=== PATIENT | female | born 1980 | race Caucasian/White ===

== ENCOUNTER 2016-09-02 | Emergency (ER) | payer SELFPAY ==
[2016-09-02 04:23] LABS: APPEARANCE,URINE CLEAR; BILIRUBIN,URINE NEGATIVE (NEGATIVE); GLUCOSE, URINE NEGATIVE (NEGATIVE); KETONES,URINE NEGATIVE (NEGATIVE); LEUKOCYTE ESTERASE,URINE SMALL (NEGATIVE); NITRITE,URINE NEGATIVE (NEGATIVE); PROTEIN,URINE NEGATIVE (NEGATIVE); URINE SPECIFIC GRAVITY 1.012; UROBILINOGEN,URINE NEGATIVE mg/dL (<2.0)
[2016-09-02] MEDS ORDERED: FLUCONAZOLE 100 MG TABLET PO ONE (04:29)
[2016-09-02] MEDS ORDERED: ACETAMINOPHEN 325 MG TABLET PO ONE (04:37)
--- NOTE | 2016-09-02 04:37 | ER Document Report ---
ED General - General Chief Complaint: Laceration Stated Complaint: LEFT ARM LACERATION Notes: Patient is 35 year old female presents with complaint of a laceration. Patient says she was cutting plastic tab on the water container. She said the knife slipped and cut the palmar aspect of her left hand. She has a small, half a centimeter, superficial abrasion on the palmar aspect of her hand. There was initially the patient's only complaint. She then later complained that she has vaginal pain it's been there for several months. Her partner says "I can barely finger her without her screaming from pain". She denies any bleeding during these episodes. She says that she does have some irregular menstrual periods. She's not had a Pap smear in several years. She's not seen a doctor in several years. She also mentions that she has chronic back pain. Her chronic back pain is unchanged. She does have history of back surgery. She denies loss of bowel control. No urinary retention. She does admit to some foul-smelling urine. No weakness into her legs. No new injuries. No change in her chronic back pain. She also complains of some bug bites. Patient says that her cat has fleas and that the fleas are biting her. No recent fevers or infections. No vomiting. No diarrhea. No other complaints at this time. No abnormal vaginal discharge. TRAVEL OUTSIDE OF THE [place] IN LAST 30 DAYS: No - Related Data Allergies/Adverse Reactions: Penicillins Allergy (Verified 09/02/16 00:35) Sulfa (Sulfonamide Antibiotics) Allergy (Verified 09/02/16 00:35) Past Medical History - Social History Smoking Status: Unknown if Ever Smoked Smoking Education Provided: Yes Frequency of alcohol use: None Drug Abuse: None Family History: Reviewed & Not Pertinent Patient has suicidal ideation: No Patient has homicidal ideation: No Renal/ Medical History: Denies: Hx Peritoneal Dialysis Musculoskeltal Medical History: Reports Hx Arthritis Review of Systems - Review of Systems Notes: My Normal Review Basic REVIEW OF SYSTEMS: CONSTITUTIONAL : Denies fever, chills, or sweats. Denies recent illness. EENT: Denies eye, ear, throat, or mouth pain or symptoms. Denies nasal or sinus congestion. RESPIRATORY: Denies cough, cold, or chest congestion. Denies shortness of breath, difficulty breathing, or wheezing. GASTROINTESTINAL: Denies abdominal pain. Denies nausea, vomiting, or diarrhea. Denies constipation. Last BM: GENITOURINARY: Foul-smelling urine FEMALE GENITOURINARY: Vaginal pain. MUSCULOSKELETAL: Chronic low back pain SKIN: Denies rash or skin lesions. NEUROLOGICAL: Denies altered mental status or loss of consciousness. Denies headache. Denies weakness or paralysis or loss of use of either side. Denies problems with gait or speech. Denies sensory or motor loss. ALL OTHER SYSTEMS REVIEWED AND NEGATIVE. Physical Exam - Vital signs Vitals: Temp Pulse Resp BP Pulse Ox 98.4 F 78 16 116/75 100 09/02/16 05:24 09/02/16 05:24 09/02/16 05:24 09/02/16 05:24 09/02/16 05:24 - Notes Notes: General Appearance: Well nourished, alert, cooperative, no acute distress, mild obvious discomfort. Vitals: reviewed, See vital signs table. Head: no swelling or tenderness to the head Eyes: PERRL, EOMI, Conjuctiva clear Lungs: No wheezing, No rales, No rhonci, No accessory muscle use, good air exchange bilaterally. Heart: Normal rate, Regular rythm, No murmur, no rub Abdomen: Normal BS, soft, No rigidity, No abdominal tenderness, No guarding, no rebound, no abdominal masses, no organomegaly Pelvic exam: No gingival swelling. No signs of gingival abscess. Patient does have some inflammation and fell smell on pelvic exam. She does have some thick white discharge. Finds are consistent with a yeast infection. Back: Surgical scar midline of the back. Minimal tenderness over the lower back. Patient has increased pain with range of motion. Patient said this is chronic and unchanged comparison to her previous chronic back pain. Extremities: strength 5/5 in all extremities, good pulses in all extremities, no swelling or tenderness in the extremities, no edema. Skin: warm, dry, appropriate color, no rash. Very superficial small, half a centimeter laceration to the hyperthenar eminence of the left hand. Patient is able to move all her fingers without difficulty. Good strength with flexion and extension and opposition of the thumb Neuro: speech clear, oriented x 3, normal affect, responds appropriately to questions. Course - Vital Signs Vital signs: Temp Pulse Resp BP Pulse Ox 98.4 F 78 16 116/75 100 09/02/16 05:24 09/02/16 05:24 09/02/16 05:24 09/02/16 05:24 09/02/16 05:24 - Laboratory Laboratory results interpreted by me: 09/02/16 03:56 Ur Leukocyte Esterase SMALL H - Transfer of Care Notes: 09/02/16 06:42 Patient's pelvic exam was consistent with yeast infection. I did give her a dose of Diflucan. Patient does have multiple small bug bites which were consistent with flea bites. I encouraged her and her partner to get her cat treated to get rid of the fleas. Patient's back pain is consistent with her chronic back pain is unchanged. I encouraged follow-up with [facility] for further treatment and management of her chronic pain. She has no neurologic deficits on exam patient she is stood and walked around the room without any difficulty. No signs of spinal cord impingement. Patient encouraged return to ER shows fevers, worsening of her symptoms, or she feels unwell. Patient had just a small abrasion to the left hand which was cleaned and then I placed Dermabond over the area. Patient agrees with plan and will be discharged home. Procedures - Laceration/Wound Repair left hand Wound length (cm): 0.5 Wound's Depth, Shape: Superficial Laceration pre-procedure: Chloraprep applied Wound Repaired With: Dermabond Post-procedure NV exam normal: Yes Complications: No Discharge - Discharge Clinical Impression: Vaginal pain, Laceration Back pain Qualifiers: Back pain location: low back pain Chronicity: chronic Back pain laterality: bilateral Sciatica presence: without sciatica Qualified Code(s): M54.5 - Low back pain Condition: Good Disposition: HOME, SELF-CARE Additional Instructions: Please follow-up with the automobile seat cover installer, Dr. Lawler, for reevaluation in regards to your vaginal pain. You should have Pap smears performed being that you're overdue for this. Please return to ER immediately if you have fevers, redness or swelling to her hand, leg weakness or numbness, worsening back pain, or feel unwell. Please follow-up with the current [facility] for further treatment of your low back pain. Referrals: CAMMY LAWLER MD [ACTIVE STAFF] - Follow up in 3-5 days
[2016-09-02 05:26] VITALS: BP 116/75
[2016-09-02 05:28] LABS: CHLAM PCR NOT DETECTED (NOT DETECT)
== END 2016-09-02 05:24 | disposition home or self-care (01) ==
LOC: ER
DX: S61.412A Laceration without foreign body of left hand, initial encounter (principal); W26.0XXA Contact with knife, initial encounter; Y93.89 Activity, other specified; T14.8 Other injury of unspecified body region; W57.XXXA Bitten or stung by nonvenomous insect and other nonvenomous arthropods, initial encounter; R10.2 Pelvic and perineal pain; N92.6 Irregular menstruation, unspecified; M54.5 Low back pain; G89.29 Other chronic pain; R39.89 Other symptoms and signs involving the genitourinary system; N89.8 Other specified noninflammatory disorders of vagina; Z98.890 Other specified postprocedural states; Z88.0 Allergy status to penicillin; Z88.2 Allergy status to sulfonamides
CPT/HCPCS: 81001; 87210; 87491; 87591; 99283

== ENCOUNTER 2016-09-16 20:53 | Emergency (ER) | payer SELFPAY ==
[2016-09-16 22:36] LABS: ABSOLUTE BASOPHILS # (AUTO) 0.2 10^3/uL (0.0-0.2); ABSOLUTE EOSINOPHILS # (AUTO) 0.1 10^3/uL (0.0-0.6); ABSOLUTE LYMPHOCYTES (AUTO) 2.8 10^3/uL (0.5-4.7); ABSOLUTE MONOCYTES (AUTO) 0.8 10^3/uL (0.1-1.4); ABSOLUTE NEUT (AUTO) 9.3 10^3/uL (1.7-8.2); BASOPHILS % (AUTO) 1.2 % (0-2); EOSINOPHILS % (AUTO) 0.6 % (0-6); HEMATOCRIT 38.2 % (36.0-47.0); HEMOGLOBIN 12.7 g/dL (12.0-15.5); HGB HCT DIFFERENCE -0.1; LYMPHOCYTES % (AUTO) 21.5 % (13-45); MEAN CORPUSCULAR HEMOGLOBIN 28.8 pg (27.0-33.4); MEAN CORPUSCULAR HGB CONC 33.3 g/dL (32.0-36.0); MEAN CORPUSCULAR VOLUME 87 fl (80-97); MONOCYTES % (AUTO) 5.9 % (3-13); RED BLOOD COUNT 4.41 10^6/uL (3.72-5.28); RED CELL DISTRIBUTION WIDTH 14.6 % (11.5-14.0); SEGMENTED NEUTROPHILS % (AUTO) 70.8 % (42-78); WHITE BLOOD COUNT 13.2 10^3/uL (4.0-10.5)
[2016-09-16 22:53] LABS: ALANINE AMINOTRANSFERASE 15 U/L (9-52); ALBUMIN 4.5 g/dL (3.5-5.0); ALKALINE PHOSPHATASE 99 U/L (38-126); ANION GAP 13 (5-19); ASPARTATE AMINO TRANSFERASE 14 U/L (14-36); BILIRUBIN,TOTAL 0.7 mg/dL (0.2-1.3); BLOOD UREA NITROGEN 4 mg/dL (7-20); CALCIUM 10.1 mg/dL (8.4-10.2); CARBON DIOXIDE 20 mmol/L (22-30); CHLORIDE 106 mmol/L (98-107); CREATININE RESULT 0.56 mg/dL (0.52-1.25); GLUCOSE 99 mg/dL (75-110); POTASSIUM 3.6 mmol/L (3.6-5.0); SODIUM 139.3 mmol/L (137-145); TOTAL PROTEIN 7.5 g/dL (6.3-8.2)
[2016-09-16 22:54] LABS: ALCOHOL < 10 mg/dL (NONE DETECTED)
[2016-09-16] MEDS ORDERED: HALOPERIDOL 5 MG TABLET PO ONE (23:14)
[2016-09-16 23:16] LABS: APPEARANCE,URINE CLEAR; BILIRUBIN,URINE NEGATIVE (NEGATIVE); GLUCOSE, URINE NEGATIVE (NEGATIVE); KETONES,URINE NEGATIVE (NEGATIVE); LEUKOCYTE ESTERASE,URINE SMALL (NEGATIVE); NITRITE,URINE NEGATIVE (NEGATIVE); PROTEIN,URINE NEGATIVE (NEGATIVE); URINE SPECIFIC GRAVITY 1.003; UROBILINOGEN,URINE NEGATIVE mg/dL (<2.0)
--- NOTE | 2016-09-16 23:17 | ER Document Report ---
ED General - General Chief Complaint: Psych Problem Stated Complaint: PSYCH EVAL Cannot obtain history due to: Mentally challenged, Altered mental status Notes: Patient is a 35-year-old female who reportedly has a past medical history of multiple psychiatric conditions although she is unable to relate what these are to me at time of assessment. She arrives by EMS after her significant other became concerned that she was added acting erratically. Patient herself is a very poor historian does not provide any meaningful information. TRAVEL OUTSIDE OF THE [place] IN LAST 30 DAYS: No - Related Data Allergies/Adverse Reactions: Penicillins Allergy (Verified 09/02/16 00:35) Sulfa (Sulfonamide Antibiotics) Allergy (Verified 09/02/16 00:35) Past Medical History - General Information source: Patient - Social History Smoking Status: Current Every Day Smoker Frequency of alcohol use: None Drug Abuse: None Lives with: Spouse/Significant other Family History: Reviewed & Not Pertinent Renal/ Medical History: Denies: Hx Peritoneal Dialysis Musculoskeltal Medical History: Reports Hx Arthritis Review of Systems - Review of Systems Notes: Constitutional: Negative for fever. HENT: Negative for sore throat. Eyes: Negative for visual changes. Cardiovascular: Negative for chest pain. Respiratory: Negative for shortness of breath. Gastrointestinal: Negative for abdominal pain, vomiting or diarrhea. Genitourinary: Negative for dysuria. Musculoskeletal: Negative for back pain. Skin: Negative for rash. Neurological: Negative for headaches, weakness or numbness. 10 point ROS negative except as marked above and in HPI. Physical Exam - Vital signs Vitals: Temp Pulse Resp BP Pulse Ox 98.4 F 108 H 18 134/92 H 95 09/16/16 22:00 09/16/16 22:00 09/16/16 22:00 09/16/16 22:00 09/16/16 22:00 Interpretation: Tachycardic Notes: PHYSICAL EXAMINATION: GENERAL: Well-appearing, well-nourished and in no acute distress. HEAD: Atraumatic, normocephalic. EYES: Pupils equal round and reactive to light, extraocular movements intact, sclera anicteric, conjunctiva are normal. ENT: nares patent, oropharynx clear without exudates. Moist mucous membranes. NECK: Normal range of motion, supple without lymphadenopathy LUNGS: Breath sounds clear to auscultation bilaterally and equal. No wheezes rales or rhonchi. HEART: Regular rate and rhythm without murmurs ABDOMEN: Soft, nontender, normoactive bowel sounds. No guarding, no rebound. No masses appreciated. EXTREMITIES: Normal range of motion, no pitting or edema. No cyanosis. NEUROLOGICAL: No focal neurological deficits. Moves all extremities spontaneously and on command. PSYCH: Flight of ideas. Poor eye contact. Hypomanic speech. SKIN: Warm, Dry, normal turgor, no rashes or lesions noted. Course - Re-evaluation Re-evalutation: 09/16/16 23:16 Patient presents agitated, very unclear and tendons are thought process, appears to respond to internal stimuli. She has threatening staff with physical and financial violence. Appears to be psychotic. She is a danger to herself and others at this time. She was placed on IVC. Medical screening labs have been obtained. Medical screening exam is unremarkable. She'll be evaluated by psychiatry in the morning. 09/17/16 03:03 Patient did try to flee the emergency department and did require security to restrain her as well as chemical restraints. On reassessment she is stable at this time. Remains medically stable. - Vital Signs Vital signs: Temp Pulse Resp BP Pulse Ox 98.4 F 108 H 18 134/92 H 95 09/16/16 22:00 09/16/16 22:00 09/16/16 22:00 09/16/16 22:00 09/16/16 22:00 - Laboratory Result Diagrams: 09/16/16 22:15 09/16/16 22:15 Laboratory results interpreted by me: 09/16/16 09/16/16 09/16/16 22:15 22:15 22:15 WBC 13.2 H RDW 14.6 H Absolute Neutrophils 9.3 H Carbon Dioxide 20 L BUN 4 L Urine Blood MODERATE H Ur Leukocyte Esterase SMALL H Salicylates < 1.0 L Acetaminophen < 10 L - EKG Interpretation by Me Additional EKG results interpreted by me: 09/17/16 03:04 Normal sinus rhythm. Rate 92. No ST elevations or depressions. QTC 451 Discharge - Discharge Clinical Impression: Agitation Psychosis Qualifiers: Psychosis type: unspecified psychosis type Qualified Code(s): F29 - Unspecified psychosis not due to a substance or known physiological condition Condition: Good Disposition: PSYCH HOSP/UNIT
[2016-09-16 23:34] LABS: URINE BARBITURATES SCREEN NEGATIVE; URINE METHADONE SCREEN NEGATIVE; URINE OPIATES LOW NEGATIVE; URINE PHENCYCLIDINE SCREEN NEGATIVE
[2016-09-17] MEDS ORDERED: DIPHENHYDRAMINE HCL 50 MG/ML VIAL ONE (00:57)
[2016-09-17] MEDS ORDERED: HALOPERIDOL LACTATE INJ 5 MG/1 ML VIAL ONE (00:57)
[2016-09-17] MEDS ORDERED: LORAZEPAM INJ 2 MG/1 ML VIAL ONE (00:58)
[2016-09-17] MEDS ORDERED: DIPHENHYDRAMINE HCL 50 MG/ML VIAL IM ONE (05:30)
[2016-09-17] MEDS ORDERED: LORAZEPAM INJ 2 MG/1 ML VIAL IM ONE (05:30)
[2016-09-17] MEDS ORDERED: HALOPERIDOL LACTATE INJ 5 MG/1 ML VIAL IM ONE (05:30)
--- NOTE | 2016-09-17 08:07 | EKG REPORT ---
SEVERITY:- NORMAL ECG - SINUS RHYTHM : Confirmed by: Malik Frederick MD 17-Sep-2016 08:07:20
--- NOTE | 2016-09-17 10:17 | ER Document Report ---
Doctor's Note Notes: 09/17/16 10:15 Rounds: Chart reviewed and patient interviewed. Patient is being evaluated for suicidal thoughts. Last night, she was threatening harm to herself and to the staff here. Much calmer today than what was reported in her chart yesterday. Patient says she has depression and "a little bit of bipolar". Denies feeling suicidal today. Says she has some much to live for. Vital signs are normal. Labs are essentially normal with a white count of 13,200 as the only abnormality. Patient appears to be medically stable for transfer or discharge. Wandy Lange M.D.
--- NOTE | 2016-09-17 12:08 | PSYCHOLOGICAL NOTE ---
Psych Note - Psych Note Psych Note: Patient is a 35 year old female who presents via EMS after her girlfriend called expressing concerns over bizarre behaviors. Patient required multiple doses of Haldol etc upon arrival, in addition to attempting to elope. Patient was also noted as a poor historian. Patient this morning states she just had an argument with her girlfriend, and she only needs a prescription for a small amount of Zyprexa and Percocets. Patient states she moved here "for love" in April and all her medications got lost in the bus system in [facility] ( patient moved from [place]). Patient states she is not a danger to herself or anyone else and "wouldn't raise my hand to my woman." Patient goes on to describe her girlfriend's beauty. Patient denies exspressing suicidal ideations or making threats towards others last night. Patient denies current suicidal/homicidal ideations. Patient continues to present as a poor historian and describes her previous mental health treatment as "Zyprexa." Patient's girlfriend, Mimi Marie states: Unable to leave a message Patient's brother states: Number not in service. Patient is A&O. Mood is manic with congruent affects. Patient denies suicidal/ homicidal ideations, intent, plan, or means. Patient denies A/V H; delusions noted. Thought processes were flight of ideas. Conversational speech was labile for rate, tone, and prosody. Intellectual abilities were estimated within average range. Attention and focus were poor. Insight, judgment, and impulse control were poor. Unspecified Bipolar and Related Disorder Patient is recommended to remain under IVC and [facility]. Patient presents as a poor historian and is not able to provide any meaningful information at this time. I consulted with Dr. Monsivais in regards to the care and management of this patient. ED MD is in agreement with disposition and recommendations.
[2016-09-17] MEDS ORDERED: OLANZAPINE 5 MG TABLET PO SCH ×2 (13:45→22:00)
[2016-09-17] MEDS ORDERED: DIVALPROEX SODIUM 500 MG TAB.SR.24H PO SCH ×2 (14:00→22:00)
[2016-09-17] MEDS ORDERED: OLANZAPINE 5 MG TABLET PO ONE (15:00)
[2016-09-17] MEDS ORDERED: DIVALPROEX SODIUM 500 MG TAB.SR.24H PO ONE (15:00)
[2016-09-17 15:58] VITALS: BP 110/79
[2016-09-17] MEDS ORDERED: BENZTROPINE MESYLATE 1 MG TABLET PO SCH (22:00)
== END 2016-09-17 16:59 ==
LOC: ER 20:53
DX: F29 Unspecified psychosis not due to a substance or known physiological condition (principal); R45.1 Restlessness and agitation; F17.200 Nicotine dependence, unspecified, uncomplicated; Z88.0 Allergy status to penicillin; Z88.2 Allergy status to sulfonamides
CPT/HCPCS: 93005; 99285; 96372; 36415; 80307 ×4; 84443; 84703; 85025; 80053; 81001; 93010; J1200; J1630; J2060

== ENCOUNTER 2016-11-03 03:51 | Emergency (ER) | payer MEDICAID ==
[2016-11-03 05:18] LABS: ABSOLUTE BASOPHILS # (AUTO) 0.1 10^3/uL (0.0-0.2); ABSOLUTE LYMPHOCYTES (AUTO) 1.7 10^3/uL (0.5-4.7); ABSOLUTE MONOCYTES (AUTO) 0.6 10^3/uL (0.1-1.4); ABSOLUTE NEUT (AUTO) 8.5 10^3/uL (1.7-8.2); APPEARANCE,URINE SLIGHTLY-CLOUDY; BASOPHILS % (AUTO) 0.6 % (0-2); BILIRUBIN,URINE NEGATIVE (NEGATIVE); EOSINOPHILS % (AUTO) 0.5 % (0-6); GLUCOSE, URINE NEGATIVE (NEGATIVE); HEMATOCRIT 37.8 % (36.0-47.0); HEMOGLOBIN 12.7 g/dL (12.0-15.5); HGB HCT DIFFERENCE 0.3; KETONES,URINE TRACE mg/dL (NEGATIVE); LEUKOCYTE ESTERASE,URINE MODERATE (NEGATIVE); MEAN CORPUSCULAR HEMOGLOBIN 29.8 pg (27.0-33.4); MEAN CORPUSCULAR HGB CONC 33.6 g/dL (32.0-36.0); MEAN CORPUSCULAR VOLUME 89 fl (80-97); MONOCYTES % (AUTO) 5.6 % (3-13); NITRITE,URINE NEGATIVE (NEGATIVE); PROTEIN,URINE 30 mg/dL (NEGATIVE); RED BLOOD COUNT 4.28 10^6/uL (3.72-5.28); RED CELL DISTRIBUTION WIDTH 13.9 % (11.5-14.0); SEGMENTED NEUTROPHILS % (AUTO) 77.3 % (42-78); UROBILINOGEN,URINE NEGATIVE mg/dL (<2.0); WHITE BLOOD COUNT 10.9 10^3/uL (4.0-10.5)
[2016-11-03 05:27] LABS: URINE BARBITURATES SCREEN NEGATIVE; URINE METHADONE SCREEN NEGATIVE; URINE OPIATES LOW NEGATIVE; URINE PHENCYCLIDINE SCREEN NEGATIVE
[2016-11-03 05:36] LABS: ALANINE AMINOTRANSFERASE 20 U/L (9-52); ALBUMIN 4.6 g/dL (3.5-5.0); ALCOHOL < 10 mg/dL (NONE DETECTED); ALKALINE PHOSPHATASE 87 U/L (38-126); ANION GAP 17 (5-19); ASPARTATE AMINO TRANSFERASE 15 U/L (14-36); BILIRUBIN,DIRECT 0.3 mg/dL (0.0-0.4); BILIRUBIN,TOTAL 0.7 mg/dL (0.2-1.3); BLOOD UREA NITROGEN 6 mg/dL (7-20); CALCIUM 10.3 mg/dL (8.4-10.2); CARBON DIOXIDE 21 mmol/L (22-30); CHLORIDE 108 mmol/L (98-107); CREATININE RESULT 0.73 mg/dL (0.52-1.25); GLUCOSE 102 mg/dL (75-110); POTASSIUM 3.1 mmol/L (3.6-5.0); SODIUM 145.8 mmol/L (137-145); TOTAL PROTEIN 7.8 g/dL (6.3-8.2)
[2016-11-03] MEDS ORDERED: POTASSIUM CHLORIDE 10 MEQ TABLET.SA PO ONE (09:23)
--- NOTE | 2016-11-03 09:37 | ER Document Report ---
ED General - General Chief Complaint: Psych Problem Stated Complaint: PSYCH EVAL/ABDOMINAL PAIN Mode of Arrival: Ambulatory Information source: Patient Notes: 35-year-old female no psychiatric history presents with complaints of left lumbar back pain. Patient notes she metal rods in the back has been lifting greater than 5 pounds over the past day. Patient denies any neurological deficits no loss of bowel or bladder function. Patient is having tangential thoughts TRAVEL OUTSIDE OF THE [place] IN LAST 30 DAYS: No - HPI Onset: Yesterday Onset/Duration: Persistent Quality of pain: Achy Severity: Mild Pain Level: 1 Associated symptoms: Body/muscle aches, Other Exacerbated by: Movement Relieved by: Denies Similar symptoms previously: No Recently seen / treated by doctor: No - Related Data Allergies/Adverse Reactions: Penicillins Allergy (Verified 09/02/16 00:35) Sulfa (Sulfonamide Antibiotics) Allergy (Verified 09/02/16 00:35) Past Medical History - Social History Smoking Status: Current Every Day Smoker Cigarette use (# per day): Yes Chew tobacco use (# tins/day): No Smoking Education Provided: No Family History: Reviewed & Not Pertinent Patient has suicidal ideation: No Patient has homicidal ideation: No Renal/ Medical History: Denies: Hx Peritoneal Dialysis Musculoskeltal Medical History: Reports Hx Arthritis Review of Systems - Review of Systems Notes: REVIEW OF SYSTEMS: CONSTITUTIONAL : Denies fever, chills, or sweats. Denies recent illness. EENT: Denies eye, ear, throat, or mouth pain or symptoms. Denies nasal or sinus congestion or discharge. Denies throat, tongue, or mouth swelling or difficulty swallowing. CARDIOVASCULAR: Denies chest pain. Denies palpitations or racing or irregular heart beat. Denies ankle edema. RESPIRATORY: Denies cough, cold, or chest congestion. Denies shortness of breath, difficulty breathing, or wheezing. GASTROINTESTINAL: Denies abdominal pain or distention. Denies nausea, vomiting , or diarrhea. Denies blood in vomitus, stools, or per rectum. Denies black, tarry stools. Denies constipation. GENITOURINARY: Denies difficulty urinating, painful urination, burning, frequency, blood in urine, or discharge. FEMALE GENITOURINARY: Denies vaginal bleeding, heavy or abnormal periods, irregular periods. Denies vaginal discharge or odor. MUSCULOSKELETAL: Admits to low back pain SKIN: Denies rash, lesions or sores. HEMATOLOGIC : Denies easy bruising or bleeding. LYMPHATIC: Denies swollen, enlarged glands. NEUROLOGICAL: Denies confusion or altered mental status. Denies passing out or loss of consciousness. Denies dizziness or lightheadedness. Denies headache. Denies weakness or paralysis or loss of use of either side. Denies problems with gait or speech. Denies sensory loss, numbness, or tingling. Denies seizures. PSYCHIATRIC: Denies anxiety or stress. Denies depression, suicidal ideation, or homicidal ideation. ALL OTHER SYSTEMS REVIEWED AND NEGATIVE. Dictation was performed using [employer] (ML4[employer]) voice recognition software PHYSICAL EXAMINATION: GENERAL: Well-appearing, well-nourished and in no acute distress. HEAD: Atraumatic, normocephalic. EYES: Pupils equal round and reactive to light, extraocular movements intact, conjunctiva are normal. ENT: Nares patent, oropharynx clear without exudates. Moist mucous membranes. NECK: Normal range of motion, supple without lymphadenopathy LUNGS: Breath sounds clear to auscultation bilaterally and equal. No wheezes rales or rhonchi. HEART: Regular rate and rhythm without murmurs ABDOMEN: Soft, nontender, nondistended abdomen. No guarding, no rebound. No masses appreciated. Female : deferred Musculoskeletal: Normal range of motion, no pitting or edema. No cyanosis. NEUROLOGICAL: Cranial nerves grossly intact. Normal speech, normal gait. Normal sensory, motor exams PSYCH: Patient is anxious walking around has tangential thoughts SKIN: Warm, Dry, normal turgor, no rashes or lesions noted. Physical Exam - Vital signs Vitals: Temp Pulse Resp BP Pulse Ox 98.4 F 85 18 110/92 H 100 11/03/16 03:57 11/03/16 03:57 11/03/16 03:57 11/03/16 03:57 11/03/16 03:57 Course - Re-evaluation Re-evalutation: 11/03/16 16:37 Physical examination noted no significant abnormality, however patient's mental health will require evaluation as she has had a history of mental issues. At this time she has no suicidal homicidal ideations was read by mental health is noted to be stable. I will have a cab take her home multiple times were made to contact family members After performing a Medical Screening Examination, I estimate there is LOW risk for EXPANDING OR RUPTURED ABDOMINAL AORTIC ANEURYSM, CAUDA EQUINA SYNDROME, EPIDURAL MASS LESION, or HERNIATED DISK CAUSING SEVERE SPINAL STENOSIS, thus I consider the discharge disposition reasonable. The patient and I have discussed the diagnosis and risks, and we agree with discharging home and close follow-up. We also discussed returning to the Emergency Department immediately if new or worsening symptoms occur with the understanding that symptoms and presentations can change. We have discussed the symptoms which are most concerning (e.g., saddle anesthesia, urinary or bowel incontinence or retention , changing or worsening pain) that necessitate immediate return. - Vital Signs Vital signs: Temp Pulse Resp BP Pulse Ox 97.7 F 69 16 107/70 98 11/03/16 14:27 11/03/16 14:27 11/03/16 14:27 11/03/16 14:27 11/03/16 14:27 - Laboratory Result Diagrams: 11/03/16 04:30 11/03/16 04:30 Laboratory results interpreted by me: 11/03/16 11/03/16 11/03/16 04:30 04:30 04:30 WBC 10.9 H Absolute Neutrophils 8.5 H Sodium 145.8 H Potassium 3.1 L Chloride 108 H Carbon Dioxide 21 L BUN 6 L Calcium 10.3 H Urine Protein 30 H Urine Ketones TRACE H Ur Leukocyte Esterase MODERATE H Salicylates < 1.0 L Acetaminophen < 10 L - EKG Interpretation by Id EKG shows normal: Sinus rhythm, [place], Intervals, QRS Complexes Discharge - Discharge Clinical Impression: Hypokalemia Back pain Qualifiers: Back pain location: low back pain Chronicity: acute Back pain laterality: left Sciatica presence: without sciatica Qualified Code(s): M54.5 - Low back pain Condition: Stable Disposition: HOME, SELF-CARE Additional Instructions: Please follow-up with your mental health team for further evaluation and care Please follow-up with your primary care physician regarding her back pain Return immediately if there are any other concerns
[2016-11-03] MEDS ORDERED: NAPROXEN 250 MG TABLET PO ONE (09:38)
[2016-11-03] MEDS ORDERED: OLANZAPINE 5 MG TAB.RAPDIS PO ONE (09:38)
--- NOTE | 2016-11-03 12:25 | PSYCHOLOGICAL NOTE ---
Psych Note - Psych Note Psych Note: Patient is a 35 year old female who presented early this mornings with complaints of back pain, and reportedly requesting a psych eval. Patient's girlfriend reportedly told EMS upon arrival that she has been non compliant with her medications, since her release from [facility] a few weeks ago. Patient today states she wants to work out her relationship with her girlfriend and states she will look in her eyes and tell her how beautiful she is. Patient continues to talk about her love for her girlfriend, and states all that happened was a little argument. Patient was redirected to talk about her psychiatric treatment, which she initially states she was not on medications in 16 years. However, patient was reminded of her IVC to [facility] in September, which she acknowledged. Patient states she was given 4 days worth of medications upon discharge, but when she got home she did not have transportation to the pharmacy to fill her prescriptions. Patient denies suicidal/homicidal ideations , intent, plan, or means. Patient's girlfriendMimi states: called and left msg x3. Patient's father, : left msg x2. Patient is A&O to name, and location. Mood is euphoric/manic with congruent affect. Patient denies suicidal/homicidal ideations, intent, plan, or means. Patient denies A/V H; delusions not noted. Thought processes were organized but focused on her girlfriend and repairing her relationship. Conversational speech was WNL for rate, tone, and prosody. Intellectual abilities were estimated within average range. Attention and focus were poor. Insight, judgment, and impulse control were poor. Unspecified Bipolar and Related Disorder, per history Patient is psychiatrically cleared for discharge and rescind IVC. Patient has been off medications for a number of weeks and states she does not have transportation to get to the pharmacy and would be unable to continue any medications started. Patient denies suicidal/homicidal ideations, and is able to present in an organized manner. Patient is able to problem solve in regards to how she will get home. Multiple attempts throughout the day were made to obtain collateral information. Patient is her own guardian, states she uses her social security to pay for rent and utilities and would like to return home. I consulted with in regards to the care and management of this patient. ED MD is in agreement with disposition and recommendations.
--- NOTE | 2016-11-03 16:05 | EKG REPORT ---
SEVERITY:- ABNORMAL ECG - SINUS RHYTHM PROBABLE LEFT ATRIAL ABNORMALITY ABNORMAL Q SUGGESTS ANTERIOR INFARCT : Confirmed by: Bobby Zhang 03-Nov-2016 16:04:15
[2016-11-03 16:43] VITALS: BP 101/63
== END 2016-11-03 17:05 | disposition home or self-care (01) ==
LOC: ER 03:51
DX: E87.6 Hypokalemia (principal); M54.5 Low back pain; M79.1 Myalgia; F17.210 Nicotine dependence, cigarettes, uncomplicated; Z88.0 Allergy status to penicillin; Z88.2 Allergy status to sulfonamides
CPT/HCPCS: 93005; 99284; 36415; 80307 ×4; 85025; 80053; 81001; 93010; J3490

== ENCOUNTER → 2016-12-15 | Outpatient (CLI) | payer OTHER ==
[2016-12-15 16:16] LABS: ALANINE AMINOTRANSFERASE 18 U/L (9-52); ALBUMIN 4.3 g/dL (3.5-5.0); ALKALINE PHOSPHATASE 72 U/L (38-126); ANION GAP 11 (5-19); ASPARTATE AMINO TRANSFERASE 12 U/L (14-36); BILIRUBIN,DIRECT 0.3 mg/dL (0.0-0.4); BILIRUBIN,TOTAL 0.3 mg/dL (0.2-1.3); BLOOD UREA NITROGEN 13 mg/dL (7-20); CALCIUM 9.8 mg/dL (8.4-10.2); CARBON DIOXIDE 23 mmol/L (22-30); CHLORIDE 106 mmol/L (98-107); CREATININE RESULT 0.63 mg/dL (0.52-1.25); GLUCOSE 83 mg/dL (75-110); POTASSIUM 4.7 mmol/L (3.6-5.0); SODIUM 139.9 mmol/L (137-145); TOTAL PROTEIN 7.1 g/dL (6.3-8.2)
== END ==
LOC: MERGE 15:24 → LAB 15:24
PROVIDERS: ATTEND Internal Medicine Pulmonary Disease
DX: R79.9 Abnormal finding of blood chemistry, unspecified (principal)
CPT/HCPCS: 36415; 80053; 82330; 83970

== ENCOUNTER 2018-01-21 16:43 | Emergency (ER) | payer OTHER ==
[2018-01-21 17:02] VITALS: BP 116/79
[2018-01-21] MEDS ORDERED: OLANZAPINE INJ/PF 10 MG SDV IM ONE (17:09)
[2018-01-21] MEDS ORDERED: OLANZAPINE 5 MG TABLET PO ONE (17:15)
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
== END 2018-01-21 17:55 ==
LOC: ER 16:43
DX: R45.1 Restlessness and agitation (principal); F41.9 Anxiety disorder, unspecified; F17.210 Nicotine dependence, cigarettes, uncomplicated; Z88.6 Allergy status to analgesic agent; Z88.0 Allergy status to penicillin; Z88.2 Allergy status to sulfonamides
CPT/HCPCS: 99283

== ENCOUNTER 2018-03-14 18:40 | Emergency (ER) | payer SELFPAY ==
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
[2018-03-14 20:19] LABS: APPEARANCE,URINE SLIGHTLY-CLOUDY; BILIRUBIN,URINE NEGATIVE (NEGATIVE); COLOR,URINE YELLOW; GLUCOSE, URINE NEGATIVE (NEGATIVE); KETONES,URINE NEGATIVE (NEGATIVE); LEUKOCYTE ESTERASE,URINE LARGE (NEGATIVE); NITRITE,URINE NEGATIVE (NEGATIVE); PROTEIN,URINE NEGATIVE (NEGATIVE); URINE SPECIFIC GRAVITY 1.011
[2018-03-14 20:21] LABS: ABSOLUTE BASOPHILS # (AUTO) 0.1 10^3/uL (0.0-0.2); ABSOLUTE EOSINOPHILS # (AUTO) 0.1 10^3/uL (0.0-0.6); ABSOLUTE LYMPHOCYTES (AUTO) 2.1 10^3/uL (0.5-4.7); ABSOLUTE MONOCYTES (AUTO) 0.9 10^3/uL (0.1-1.4); ABSOLUTE NEUT (AUTO) 5.3 10^3/uL (1.7-8.2); BASOPHILS % (AUTO) 0.6 % (0-2); HEMATOCRIT 36.2 % (36.0-47.0); HEMOGLOBIN 12.4 g/dL (12.0-15.5); MEAN CORPUSCULAR HEMOGLOBIN 30.8 pg (27.0-33.4); MEAN CORPUSCULAR HGB CONC 34.3 g/dL (32.0-36.0); MEAN CORPUSCULAR VOLUME 90 fl (80-97); MONOCYTES % (AUTO) 10.9 % (3-13); PLATELET COUNT 292 10^3/uL (150-450); RED BLOOD COUNT 4.04 10^6/uL (3.72-5.28); RED CELL DISTRIBUTION WIDTH 14.1 % (11.5-14.0); SEGMENTED NEUTROPHILS % (AUTO) 62.5 % (42-78); TOTAL CELLS COUNTED % (AUTO) 100 %; WHITE BLOOD COUNT 8.5 10^3/uL (4.0-10.5)
[2018-03-14 20:33] LABS: URINE AMPHETAMINES SCREEN NEGATIVE; URINE BARBITURATES SCREEN NEGATIVE; URINE BENZODIAZEPINES SCREEN NEGATIVE; URINE COCAINE SCREEN NEGATIVE; URINE MARIJUANA (THC) SCREEN UNCONFIRMED POSITIVE; URINE METHADONE SCREEN NEGATIVE; URINE PHENCYCLIDINE SCREEN NEGATIVE
[2018-03-14 20:47] LABS: ALANINE AMINOTRANSFERASE 123 U/L (9-52); ALBUMIN 4.1 g/dL (3.5-5.0); ALKALINE PHOSPHATASE 66 U/L (38-126); ANION GAP 12 (5-19); ASPARTATE AMINO TRANSFERASE 75 U/L (14-36); BILIRUBIN,DIRECT 0.3 mg/dL (0.0-0.4); BILIRUBIN,TOTAL 0.7 mg/dL (0.2-1.3); BLOOD UREA NITROGEN 4 mg/dL (7-20); CALCIUM 9.6 mg/dL (8.4-10.2); CARBON DIOXIDE 25 mmol/L (22-30); CHLORIDE 106 mmol/L (98-107); GLUCOSE 86 mg/dL (75-110); POTASSIUM 4.1 mmol/L (3.6-5.0); SODIUM 143.2 mmol/L (137-145); TOTAL PROTEIN 7.8 g/dL (6.3-8.2)
[2018-03-14 20:48] LABS: ACETAMINOPHEN < 10 ug/mL (10-30); ALCOHOL < 10 mg/dL (NONE DETECTED); SALICYLATE < 1.0 mg/dL (2.0-20.0)
[2018-03-14] MEDS ORDERED: ZIPRASIDONE HCL 20 MG CAPSULE PO ONE (21:31)
--- NOTE | 2018-03-14 23:49 | EKG REPORT ---
SEVERITY:- NORMAL ECG - SINUS RHYTHM : Confirmed by: Bobby Zhang 14-Mar-2018 23:48:46
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
--- NOTE | 2018-03-15 10:42 | ER Document Report ---
Doctor's Note Notes: 03/15/18 10:40 Medical Rounds: Patient is initially pleasant, alert and oriented to person, place and time. Talks about police arresting her and science experiments although conversation does not make since. Patient became agitated and repeatedly yells for someone to . (ANTHONY VANESSA) 03/15/18 18:39 Agrees with mental health recommendation to maintain patient on IVC. The IVC paperwork did have to be re-filled out due to spelling errors and her name. 03/15/18 18:41 Initial medication recommendations were for Zyprexa and Cogentin however when patient was not responding well to the Zyprexa they then recommended changing to Thorazine. Patient is medically cleared for transfer to inpatient psychiatric facility or discharge. (JARED HERNÁNDEZ)
[2018-03-15] MEDS ORDERED: BENZTROPINE MESYLATE INJ 2 MG/2 ML AMPULE IM ONE (11:30)
[2018-03-15] MEDS: NITROFURANTOIN MONOHYD/M-CRYST 100 MG CAPSULE PO SCH ×2 (11:48→17:22)
[2018-03-15] MEDS: CHLORPROMAZINE HCL 50 MG TABLET PO SCH (17:21)
[2018-03-15] MEDS: DIVALPROEX SODIUM 500 MG TAB.SR.24H PO SCH (17:22)
[2018-03-15] MEDS ORDERED: OLANZAPINE 5 MG TABLET PO SCH (18:00)
[2018-03-15] MEDS ORDERED: CHLORPROMAZINE HCL INJ 25 MG/1 ML AMPULE IM ONE (19:02)
[2018-03-16] MEDS: CHLORPROMAZINE HCL 50 MG TABLET PO SCH ×2 (01:05→08:18)
[2018-03-16] MEDS: DIVALPROEX SODIUM 500 MG TAB.SR.24H PO SCH (09:32)
[2018-03-16] MEDS: NITROFURANTOIN MONOHYD/M-CRYST 100 MG CAPSULE PO SCH (09:32)
[2018-03-16] MEDS ORDERED: BENZTROPINE MESYLATE 1 MG TABLET PO SCH (10:00)
--- NOTE | 2018-03-16 10:24 | ER Document Report ---
Doctor's Note Notes: 03/16/18 10:23 Rounds: Chart reviewed and patient interviewed. Patient's being evaluated for bipolar disorder with bizarre behavior. She is very talkative this morning. Vital signs are all normal. Lab studies are negative except for possible urinary tract infection for which patient has been started on nitrofurantoin. She has very minor changes in her LFTs. Drug screen positive for marijuana. Patient appears to be medically stable for transfer or discharge. Wadny Lange MD
[2018-03-16 15:12] VITALS: BP 94/58
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
== END 2018-03-16 15:22 | disposition other institution (70) ==
LOC: ER 18:40
DX: F31.60 Bipolar disorder, current episode mixed, unspecified (principal); R44.3 Hallucinations, unspecified; F17.200 Nicotine dependence, unspecified, uncomplicated; Z88.5 Allergy status to narcotic agent; Z88.0 Allergy status to penicillin; Z88.2 Allergy status to sulfonamides
CPT/HCPCS: 93005; 99285; 96372; 36415; 80307 ×4; 84443; 84703; 85025; 80053; 81001; 93010; J0515; J3230; J3490 ×2; J8499 ×2